=== PATIENT | female | born 1935 | race Caucasian/White ===

== ENCOUNTER 2016-12-04 09:20 | Inpatient (IN) | payer MEDICARE, OTHER ==
[~2016-12-04] VITALS: Ht 165.1 cm; Wt 73.6 kg
[2016-12-16] MEDS ORDERED: LUTE20CA PO (12:55)
[2016-12-16] MEDS ORDERED: DAILTAB39 PO (12:55)
[2016-12-16] MEDS ORDERED: PANT40TA3 PO (12:55)
[2016-12-16] MEDS ORDERED: METO100T PO (12:55)
[2016-12-16] MEDS ORDERED: VITA100036 PO (12:55)
[2016-12-16] MEDS ORDERED: LORA-373 PO (12:55)
[2016-12-16] MEDS ORDERED: DORZ2SOL EACH EYE (12:55)
[2016-12-16] MEDS ORDERED: ESCI10TA PO (12:55)
[2016-12-16] MEDS ORDERED: AMLO10TA2 PO (12:55)
[2016-12-16] MEDS ORDERED: COMB0.2S EACH EYE (12:55)
[2016-12-16] MEDS ORDERED: RANI150T PO (12:55)
[2016-12-16] MEDS ORDERED: LUMI0.01 EACH EYE (12:55)
[2016-12-16] MEDS ORDERED: CRAN400C PO (12:55)
[2016-12-16] MEDS ORDERED: ESTR42.5V VAGINAL (12:55)
[2016-12-23] VITALS (10 sets, daily range): BP systolic 98–167; BP diastolic 54–80; PULSE 51–67; RESP 18–20; TEMP 97.9–98.6; O2SAT 93–98
[2016-12-23] MEDS ORDERED: NEOSTIGMINE 3 MG/3 ML SYR IV ONE (11:52)
[2016-12-23] MEDS ORDERED: PROPOFOL 200 MG/20 ML AMP IV ONE (11:52)
[2016-12-23] MEDS ORDERED: LACTATED RINGER'S 1000 ML INJ 1,000 ML IV ONE (11:53)
[2016-12-23] MEDS ORDERED: ONDANSETRON HCL 4 MG/2 ML VIAL IV PUSH ONE (11:53)
[2016-12-23] MEDS ORDERED: ALVIMOPAN 12 MG CAPSULE - On Call PO SCH (12:45)
[2016-12-23] MEDS ORDERED: SODIUM CHLORID 0.9% 500 ML IV PRN (12:45)
[2016-12-23] MEDS ORDERED: LACTATED RINGER'S 1000 ML IV PRN (12:45)
[2016-12-23] MEDS ORDERED: CHLORHEXIDINE GLUCONATE 2 % 1 PACK (2 CLOTHS) TOPICAL PRN (12:45)
[2016-12-23] MEDS ORDERED: INSULIN HUMAN REGULAR 1,000 UNITS/10 ML VIAL SQ PRN (12:45)
[2016-12-23] MEDS ORDERED: METRONIDAZOLE 500 MG/100 ML ISONTONIC SOLN IV SCH (12:45)
[2016-12-23] MEDS ORDERED: ceFAZolin 1,000 MG/NS 100 ML IV SCH ×2 (12:45)
[2016-12-23] MEDS ORDERED: METOPROLOL TARTRATE 25 MG TAB PO PRN (12:45)
[2016-12-23] MEDS ORDERED: POVIDONE IODINE 5% (ANTISEPSIS KIT) 4 APPLICATIONS EACH NARE PRN (12:45)
[2016-12-23] MEDS ORDERED: DEXT 5%-NACL 0.9% 1000 ML INJ 1,000 ML IV SCH (13:00)
[2016-12-23] MEDS ORDERED: MIDAZOLAM HCL 2 MG/2 ML VIAL ONE (16:03)
[2016-12-23] MEDS ORDERED: FAMOTIDINE 20 MG/2 ML VIAL ONE (16:03)
[2016-12-23] MEDS ORDERED: DEXAMETHASONE SOD PHOS 4 MG/ML VIAL ONE (16:03)
[2016-12-23] MEDS ORDERED: ACETAMINOPHEN 1000 MG/100 ML VIAL IV ONE (16:39)
[2016-12-23] MEDS ORDERED: HYDROmorphone HCL PF 2 MG/ML VIAL ONE (16:39)
[2016-12-23] MEDS ORDERED: fentaNYL CITRATE 250 MCG/5 ML AMP ONE ×2 (16:39→18:22)
[2016-12-23] MEDS ORDERED: KETOROLAC TROMETHAMINE 30 MG/ML (IVP) VIAL IVP PRN (17:45)
[2016-12-23] MEDS ORDERED: NALOXONE HCL 0.4 MG/ML AMP IV PRN (17:45)
[2016-12-23] MEDS ORDERED: ACETAMINOPHEN/HYDROcodone 325 MG/5 MG TAB PO PRN ×2 (17:45)
[2016-12-23] MEDS ORDERED: POTASSIUM CHLOR 20 MEQ PREMIX 100 ML IV PRN (17:45)
[2016-12-23] MEDS ORDERED: MORPHINE SULFATE 30 MG/30 ML PCA IV SCH (17:45)
[2016-12-23] MEDS ORDERED: Post-op Orders (for Pharmacy) MISC XX ONE (17:45)
[2016-12-23] MEDS ORDERED: POTASSIUM CHLOR 40 MEQ PREMIX 100 ML IV PRN (17:45)
[2016-12-23] MEDS ORDERED: ZOLPIDEM TARTRATE 5 MG TAB PO PRN (17:45)
[2016-12-23] MEDS ORDERED: SODIUM CHLORIDE 0.9% FLUSH 10 ML FLUSH IV FLUSH PRN (17:45)
[2016-12-23] MEDS ORDERED: BENZOCAINE 6 MG/MENTHOL 10 MG LOZENGE BUCCAL PRN (17:45)
[2016-12-23] MEDS ORDERED: ONDANSETRON HCL 4 MG/2 ML VIAL IV PRN (17:45)
[2016-12-23] MEDS ORDERED: ENALAPRILAT 1.25 MG/ML VIAL IV PRN (17:45)
[2016-12-23] MEDS: DORZOLAMIDE 2% OPTH SOLN 200 DROP/10 ML BTLO EACH EYE SCH (18:00)
[2016-12-23 18:25] LABS: AUTOMATED NEUTROPHIL # 6.8 TH/MM3 (1.8-7.7); BASOPHIL # 0.1 TH/MM3 (0-0.2); BASOPHIL % 0.6 % (0.0-2.0); EOSINOPHIL # 0.1 TH/MM3 (0-0.4); EOSINOPHIL % 0.7 % (0.0-4.0); HEMATOCRIT 42.7 % (35.0-46.0); HEMO FLAGS DIFF FINAL; LYMPH % 15.3 % (9.0-44.0); LYMPHOCYTE # 1.3 TH/MM3 (1.0-4.8); MEAN CELL VOLUME 87.4 FL (80.0-100.0); MEAN CORPUSCULAR HEMOGLOBIN 29.2 PG (27.0-34.0); MEAN CORPUSCULAR HGB CONC 33.4 % (32.0-36.0); MONO % 2.5 % (0.0-8.0); NEUT % 80.9 % (16.0-70.0); PLATELET COUNT 241 TH/MM3 (150-450); RED BLOOD COUNT 4.88 MIL/MM3 (4.00-5.30); RED CELL DISTRIBUTION WIDTH 15.4 % (11.6-17.2); WHITE BLOOD COUNT 8.4 TH/MM3 (4.0-11.0)
[2016-12-23] MEDS ORDERED: *morphine SULFATE 8 MG/ML PERIprocedure ONLY ONE (18:33)
[2016-12-23 18:47] LABS: BICARBONATE 21.1 MEQ/L (21.0-32.0)
[2016-12-23 18:50] LABS: POTASSIUM 4.5 MEQ/L (3.5-5.1)
[2016-12-23] MEDS ORDERED: DO NOT ADM ANY ANTICOAGULANT DRUGS PRN (19:00)
[2016-12-23] MEDS: D5-LR + KCL 20 MEQ INJ 1,000 ML IV SCH (19:00)
[2016-12-23] MEDS: METOCLOPRAMIDE HCL 10 MG/2 ML VIAL IVS SCH ×2 (20:10→23:46)
[2016-12-23] MEDS: METOPROLOL TARTRATE 100 MG TAB PO SCH (20:11)
[2016-12-23] MEDS: SULFAMETHOXAZOLE-TRIMETHOPRIM DS 800-160 MG TAB PO SCH (20:12)
[2016-12-23] MEDS: SODIUM CHLORIDE 0.9% FLUSH 10 ML FLUSH IV FLUSH SCH (20:12)
[2016-12-23] MEDS ORDERED: NON-FORMULARY DRUG (Bimatoprost Opth Drops (Lumigan Opth Drops) 1 DROP) EACH EYE SCH (21:00)
[2016-12-23] MEDS ORDERED: NON-FORMULARY DRUG (Brimonidine-Timolol Opth Drops (Combigan Opth Drops) 1 DROP) EACH EYE SCH (21:00)
[2016-12-23] MEDS: PCA - TOTAL MG MORPHINE DELIVERED PER SHIFT SCH (22:00)
[2016-12-23] MEDS: LATANOPROST 0.005% OPHT SOLN 2.5 ML BTL EACH EYE SCH (22:00)
[2016-12-23] MEDS ORDERED: PT:COMBIGAN OPTH SOL EACH EYE SCH (23:00)
[2016-12-23] MEDS: metroNIDAZOLE 500 MG INJ 100 ML IV SCH (23:45)
[2016-12-24] VITALS (9 sets, daily range): BP systolic 112–150; BP diastolic 60–85; PULSE 51–67; RESP 16–18; TEMP 96–98.6; O2SAT 95–99
[2016-12-24] MEDS: D5-LR + KCL 20 MEQ INJ 1,000 ML IV SCH ×2 (03:25→15:52)
[2016-12-24] MEDS: PCA - TOTAL MG MORPHINE DELIVERED PER SHIFT SCH (05:26)
[2016-12-24] MEDS: METOCLOPRAMIDE HCL 10 MG/2 ML VIAL IVS SCH ×3 (05:26→17:16)
[2016-12-24 05:47] LABS: AUTOMATED NEUTROPHIL # 6.7 TH/MM3 (1.8-7.7); HEMO FLAGS DIFF FINAL; LYMPH % 8.9 % (9.0-44.0); LYMPHOCYTE # 0.7 TH/MM3 (1.0-4.8); MEAN CELL VOLUME 86.4 FL (80.0-100.0); MEAN CORPUSCULAR HGB CONC 33.6 % (32.0-36.0); MONO % 4.1 % (0.0-8.0); PLATELET COUNT 236 TH/MM3 (150-450); RED BLOOD COUNT 4.51 MIL/MM3 (4.00-5.30); RED CELL DISTRIBUTION WIDTH 15.6 % (11.6-17.2); WHITE BLOOD COUNT 7.7 TH/MM3 (4.0-11.0)
[2016-12-24 06:03] LABS: BICARBONATE 23.8 MEQ/L (21.0-32.0); POTASSIUM 4.3 MEQ/L (3.5-5.1)
[2016-12-24] MEDS: metroNIDAZOLE 500 MG INJ 100 ML IV SCH ×2 (07:49→15:50)
[2016-12-24] MEDS: DORZOLAMIDE 2% OPTH SOLN 200 DROP/10 ML BTLO EACH EYE SCH ×3 (09:00→17:16)
--- NOTE | 2016-12-24 09:01 | HHI.PR ---
Subjective Remarks No pain. No N or V. No stool. Objective Vital Signs Date Time Temp Pulse Resp B/P Pulse Ox O2 Delivery O2 Flow Rate FiO2 12/24/16 07:00 98.5 65 18 120/85 99 12/24/16 07:00 52 12/24/16 05:26 22 12/24/16 03:42 95 Nasal Cannula 4.50 12/24/16 03:00 97.9 67 18 112/60 98 12/24/16 03:00 94 Nasal Cannula 3.00 12/23/16 23:00 96 Nasal Cannula 3.00 12/23/16 23:00 97.9 67 18 98/60 98 12/23/16 22:00 18 12/23/16 19:22 16 12/23/16 19:00 96 Nasal Cannula 3.00 12/23/16 19:00 98.6 51 18 127/54 96 12/23/16 19:00 98.0 59 17 119/55 95 Nasal Cannula 2 12/23/16 18:55 52 16 142/71 95 Nasal Cannula 2 12/23/16 18:45 52 16 140/65 95 Nasal Cannula 2 12/23/16 18:30 54 16 162/91 96 Nasal Cannula 3 12/23/16 18:15 63 16 162/78 96 Nasal Cannula 3 12/23/16 18:04 97.5 68 16 145/88 95 Nasal Cannula 4 12/23/16 13:21 97.9 65 18 167/80 98 I/O 12/23/16 12/23/16 12/23/16 12/24/16 12/24/16 12/24/16 07:00 15:00 23:00 07:00 15:00 23:00 Intake Total 2000 ml 1241 ml Output Total 80 ml 350 ml Balance 1920 ml 891 ml Intake Oral 120 ml IV Total 1000 ml 1121 ml Other 1000 ml Output Urine Total 70 ml 350 ml Stool Total 0 ml Estimated Blood Loss 10 ml Result Diagram: 12/24/16 0458 12/24/16 0458 Objective Remarks VS-S Abd: flat, soft, non tender. stoma pink Assessment and Plan Assessment and Plan Stable POD#[address] [place] [address]. 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 Aden Rouse MD Dec 24, 2016 09:01
[2016-12-24] MEDS: SULFAMETHOXAZOLE-TRIMETHOPRIM DS 800-160 MG TAB PO SCH ×2 (09:37→21:16)
[2016-12-24] MEDS: ESCITALOPRAM OXALATE 10 MG TAB PO SCH (09:37)
[2016-12-24] MEDS: METOPROLOL TARTRATE 100 MG TAB PO SCH ×2 (09:37→21:16)
[2016-12-24] MEDS: ALVIMOPAN 12 MG CAPSULE - Post-op dosing PO SCH ×2 (09:37→21:16)
[2016-12-24] MEDS: SODIUM CHLORIDE 0.9% FLUSH 10 ML FLUSH IV FLUSH SCH ×2 (09:38→21:00)
[2016-12-24] MEDS: PANTOPRAZOLE SODIUM 40 MG VIAL IVP SCH (09:38)
--- NOTE | 2016-12-24 12:50 | MP ---
cc: ANSHU SINGLETARY M.D., JOHN T. M.D. DATE OF SURGERY: 12/23/2016 PREOPERATIVE DIAGNOSIS Rectovaginal fistula. POSTOPERATIVE DIAGNOSIS Rectovaginal fistula. PROCEDURE Fully diverting loop colostomy and rectal washout. ANESTHESIA General endotracheal. SURGEON Dr. Perera TRACK SERVICE PERSON Dr. Parker ESTIMATED BLOOD LOSS Minimal. OPERATIVE FINDINGS This patient has a large upper rectovaginal fistula, probably from a pessary that has been intermittently. The rectovaginal fistula was identified about a month ago and because of its size we decided diversion was going to be necessary in order to repair it. She is having a profuse amount of liquid stool from her bowel prep draining out of her vagina at this time. At surgery a fully diverting loop colostomy was done in the sigmoid colon. The right upper sigmoid was closed with a TX 60 green staple height stapling device to prevent any stool from leaking down the distal colon into the vagina so it was fully diverting. A rectal washout was done as well. OPERATIVE TECHNIQUE The patient was placed on the table in the supine position. After adequate general endotracheal anesthesia the legs were placed in the perineal lithotomy position and the abdomen and perineum were prepped and draped in the usual manner. A circular incision was made in the left lower quadrant in the skin and taken down through subcutaneous tissue and the anterior rectus sheath was incised vertically and then the rectus muscles were split. The posterior rectus sheath was grabbed and divided and opened and the peritoneal cavity was entered. The sigmoid colon was seen in the left colic gutter and it was fairly redundant. It was thickened with some diverticulosis but it was brought out through the colostomy site and an opening in the mesentery was made under the bowel. Once this was done a [place] drain was passed under it and then Dr. Parker did proctosigmoidoscopy examination, insufflating air into the rectum to ensure which end was distal. Once that was assured with the air the distal end of the colostomy site was closed with a TX 60 green staple height stapler and then the rectum was irrigated thoroughly with saline solution and cleaned of any leftover stool. The colostomy was then matured with a transverse incision across the sigmoid colon and it was matured with interrupted 3-0 Vicryl sutures and a 57 mm appliance was applied up. Sponge, needle and instrument counts were reported as correct. The estimated blood loss was minimal. The patient tolerated the procedure well and left the operating room in good condition. Operating time was 25 minutes. MD OSCAR Posada/BARBRA /6:09 PM /12:45 PM
[2016-12-24] MEDS ORDERED: ALVIMOPAN 12 MG CAPSULE PO SCH (21:00)
[2016-12-24] MEDS: LATANOPROST 0.005% OPHT SOLN 2.5 ML BTL EACH EYE SCH (21:16)
[2016-12-25] VITALS: BP 151/65; PULSE 52; RESP 16; TEMP 97.2; O2SAT 92
[2016-12-25 04:00] VITALS: BP 140/69; PULSE 57; RESP 18; TEMP 96.6; O2SAT 96
[2016-12-25 05:07] LABS: AUTOMATED NEUTROPHIL # 6.2 TH/MM3 (1.8-7.7); BASOPHIL % 0.5 % (0.0-2.0); EOSINOPHIL # 0.1 TH/MM3 (0-0.4); EOSINOPHIL % 0.7 % (0.0-4.0); HEMATOCRIT 38.7 % (35.0-46.0); HEMO FLAGS DIFF FINAL; LYMPH % 15.4 % (9.0-44.0); LYMPHOCYTE # 1.3 TH/MM3 (1.0-4.8); MEAN CELL VOLUME 86.7 FL (80.0-100.0); MEAN CORPUSCULAR HEMOGLOBIN 28.8 PG (27.0-34.0); MEAN CORPUSCULAR HGB CONC 33.2 % (32.0-36.0); MONO % 7.5 % (0.0-8.0); NEUT % 75.9 % (16.0-70.0); PLATELET COUNT 227 TH/MM3 (150-450); RED BLOOD COUNT 4.46 MIL/MM3 (4.00-5.30); RED CELL DISTRIBUTION WIDTH 15.6 % (11.6-17.2); WHITE BLOOD COUNT 8.2 TH/MM3 (4.0-11.0)
[2016-12-25 05:24] LABS: BICARBONATE 26.9 MEQ/L (21.0-32.0); POTASSIUM 3.7 MEQ/L (3.5-5.1)
[2016-12-25] MEDS: METOCLOPRAMIDE HCL 10 MG/2 ML VIAL IVS SCH ×4 (06:00→18:38)
[2016-12-25 08:00] VITALS: BP 156/70; PULSE 55; RESP 16; TEMP 97.5; O2SAT 92
[2016-12-25] MEDS: SODIUM CHLORIDE 0.9% FLUSH 10 ML FLUSH IV FLUSH SCH ×2 (09:00→21:00)
[2016-12-25] MEDS: SULFAMETHOXAZOLE-TRIMETHOPRIM DS 800-160 MG TAB PO SCH ×2 (10:44→21:17)
[2016-12-25] MEDS: ESCITALOPRAM OXALATE 10 MG TAB PO SCH (10:44)
[2016-12-25] MEDS: ALVIMOPAN 12 MG CAPSULE - Post-op dosing PO SCH ×2 (10:44→21:17)
[2016-12-25] MEDS: METOPROLOL TARTRATE 100 MG TAB PO SCH ×2 (10:45→21:17)
[2016-12-25] MEDS: DORZOLAMIDE 2% OPTH SOLN 200 DROP/10 ML BTLO EACH EYE SCH ×3 (10:45→18:38)
[2016-12-25] MEDS: PANTOPRAZOLE SODIUM 40 MG VIAL IVP SCH (10:45)
[2016-12-25 12:00] VITALS: BP 148/76; PULSE 62; RESP 16; TEMP 97.7; O2SAT 95
--- NOTE | 2016-12-25 12:53 | HHI.PR ---
Subjective Remarks No pain. No N or V. No stool. Objective Vital Signs Date Time Temp Pulse Resp B/P Pulse Ox O2 Delivery O2 Flow Rate FiO2 12/25/16 12:00 97.7 62 16 148/76 95 12/25/16 08:00 97.5 55 16 156/70 92 12/25/16 04:00 96.6 57 18 140/69 96 12/25/16 00:00 97.2 52 16 151/65 92 12/24/16 20:00 96.8 51 16 135/63 95 12/24/16 18:43 96.0 55 18 150/69 96 12/24/16 15:00 98.6 51 18 124/65 97 I/O 12/24/16 12/24/16 12/24/16 12/25/16 12/25/16 12/25/16 07:00 15:00 23:00 07:00 15:00 23:00 Intake Total 1241 ml 1663 ml 833 ml Output Total 350 ml 570 ml 250 ml Balance 891 ml 1093 ml 583 ml Intake Oral 120 ml 460 ml 120 ml IV Total 1121 ml 1203 ml 713 ml Output Urine Total 350 ml 550 ml 250 ml Stool Total 0 ml 20 ml 0 ml # Voids 2 Result Diagram: 12/25/16 0457 12/25/16456 Objective Remarks VS-S Abd: flat, soft, non tender. stoma pink Assessment and Plan Assessment and Plan Stable POD#2 FLD now, Reg in AM. Ambulate. Plan D/C tomorrow to [facility] Aden Peerra MD Dec 25, 2016 12:53
[2016-12-25] MEDS: D5-LR + KCL 20 MEQ INJ 1,000 ML IV SCH ×2 (14:25)
[2016-12-25 16:00] VITALS: BP 163/74; PULSE 65; RESP 17; TEMP 97.5; O2SAT 93
[2016-12-25 20:00] VITALS: BP 110/58; PULSE 64; RESP 20; TEMP 98.2; O2SAT 94
[2016-12-25] MEDS: LATANOPROST 0.005% OPHT SOLN 2.5 ML BTL EACH EYE SCH (21:18)
[2016-12-26] VITALS: BP 176/72; PULSE 62; RESP 20; TEMP 97.8; O2SAT 93
[2016-12-26] MEDS: METOCLOPRAMIDE HCL 10 MG/2 ML VIAL IVS SCH ×3 (01:13→12:06)
[2016-12-26 05:30] VITALS: BP 159/75; PULSE 54; RESP 20; TEMP 96.5; O2SAT 94
[2016-12-26 08:00] VITALS: BP 167/77; PULSE 57; RESP 20; TEMP 97.5; O2SAT 95
[2016-12-26] MEDS: SODIUM CHLORIDE 0.9% FLUSH 10 ML FLUSH IV FLUSH SCH (08:15)
[2016-12-26] MEDS: D5-LR + KCL 20 MEQ INJ 1,000 ML IV SCH (08:46)
[2016-12-26] MEDS: METOPROLOL TARTRATE 100 MG TAB PO SCH (08:47)
[2016-12-26] MEDS: PANTOPRAZOLE SODIUM 40 MG VIAL IVP SCH (08:47)
[2016-12-26] MEDS: SULFAMETHOXAZOLE-TRIMETHOPRIM DS 800-160 MG TAB PO SCH (08:47)
[2016-12-26] MEDS: ALVIMOPAN 12 MG CAPSULE - Post-op dosing PO SCH (08:47)
[2016-12-26] MEDS: DORZOLAMIDE 2% OPTH SOLN 200 DROP/10 ML BTLO EACH EYE SCH ×2 (08:47→12:06)
[2016-12-26] MEDS: ESCITALOPRAM OXALATE 10 MG TAB PO SCH (08:47)
--- NOTE | 2016-12-26 10:52 | HHI.DCPOC ---
Discharge Care Plan Diagnosis: (1) Colovaginal fistula Your Health Problems Are: Difficulty with ADL Incision/Drains Appetite Changes Irregular Bowel Function Exercise Tolerance Additional Problems New colostomy teaching Goals to Promote Your Health * To prevent worsening of your condition and complications * To maintain your health at the optimal level Directions to Meet Your Goals Take your medications as prescribed Follow your dietary instruction Follow activity as directed Keep your appointments as scheduled Take your immunizations and boosters as scheduled If your symptoms worsen call your PCP, if no PCP go to Urgent Care Center or Emergency Room Smoking is Dangerous to Your Health. Avoid second hand smoke Call the 24-hour hour crisis hotline for domestic abuse at Aden Perera MD Dec 26, 2016 10:52
[2016-12-26 11:42] VITALS: BP 121/59; PULSE 58; RESP 19; TEMP 96.9; O2SAT 95
== END 2016-12-26 15:06 | DRG 331 ==
LOC: HSDI 12-23 12:08 → EDUNIT# 12-23 16:00 → HCIS 12-23 19:25 → N07A 12-24 18:19
PROVIDERS: ADMIT Colon & Rectal Surgery; ATTEND Colon & Rectal Surgery
PROC: 3E1 Administration, Physiological Systems and Anatomical Regions, Irrigation (ICD-10-PCS; 2016-12-23)
PROC: 0DJD8ZZ Inspection of Lower Intestinal Tract, Via Natural or Artificial Opening Endoscopic (ICD-10-PCS; 2016-12-23)
PROC: 0D1N0Z4 Bypass Sigmoid Colon to Cutaneous, Open Approach (ICD-10-PCS; principal; 2016-12-23 16:36)
DX: N82.3 Fistula of vagina to large intestine (principal); I10 Essential (primary) hypertension; H40.9 Unspecified glaucoma
CPT/HCPCS: 80048; 85025; 86850; 86900; 86901; 94150; C9113; J0131; J0690; J1100; J1170; J2250; J2270; J2405; J2710; J2765; J3010; J3480; J7120

== ENCOUNTER → 2016-12-16 | Outpatient (CLI) | payer MEDICARE, OTHER ==
[~2016-12-16] MED LIST: AMLO10TA2 PO; COMB0.2S EACH EYE; CRAN400C PO; DAILTAB39 PO; DORZ2SOL EACH EYE; ESCI10TA PO; ESTR42.5V VAGINAL; LORA-373 PO; LUMI0.01 EACH EYE; LUTE20CA PO; METO100T PO; PANT40TA3 PO; RANI150T PO; VITA100036 PO
[2016-12-16 11:51] LABS: BASOPHIL # 0.1 TH/MM3 (0-0.2); BASOPHIL % 0.6 % (0.0-2.0); EOSINOPHIL # 0.1 TH/MM3 (0-0.4); EOSINOPHIL % 1.4 % (0.0-4.0); HEMATOCRIT 45.1 % (35.0-46.0); HEMO FLAGS DIFF FINAL; LYMPH % 15.3 % (9.0-44.0); LYMPHOCYTE # 1.4 TH/MM3 (1.0-4.8); MEAN CELL VOLUME 85.9 FL (80.0-100.0); MEAN CORPUSCULAR HEMOGLOBIN 28.7 PG (27.0-34.0); MEAN CORPUSCULAR HGB CONC 33.4 % (32.0-36.0); MONO % 5.5 % (0.0-8.0); NEUT % 77.2 % (16.0-70.0); PLATELET COUNT 273 TH/MM3 (150-450); RED BLOOD COUNT 5.25 MIL/MM3 (4.00-5.30); RED CELL DISTRIBUTION WIDTH 15.2 % (11.6-17.2); WHITE BLOOD COUNT 9.1 TH/MM3 (4.0-11.0)
--- NOTE | 2016-12-16 11:59 | RADRPT ---
EXAM DATE/TIME: 12/16/2016 11:39 [place] COMPARISON: No previous studies available for comparison. INDICATIONS : Evaluate for pneumothorax, pneumonia and communicable diseases. Pre-op colonoscopy MEDICAL HISTORY : None. SURGICAL HISTORY : None. ENCOUNTER: Initial ACUITY: 1 day PAIN SCORE: 0/10 LOCATION: chest FINDINGS: A retrocardiac density containing air is identified. There is minimal atelectasis versus scarring in the left base. Lungs otherwise clear. Heart and mediastinal structures are unremarkable. CONCLUSION: Retrocardiac density consistent with a moderate to large hiatal hernia. Minimal scar versus atelectasis left base. No other significant abnormality. Isak Silva MD on December 16, 2016 at 11:55 Board Certified Radiologist. This report was verified electronically.
[2016-12-16 12:03] LABS: PROTHROMBIN TIME - PATIENT 10.7 SEC (9.8-11.6)
[2016-12-16 12:10] LABS: BACTERIA, URINE MANY /hpf; BLOOD, URINE MOD (NEG); COMMENT (UR) CULTURE INDICATED; CULTURE IF INDICATED CULTURE INDICATED; GLUCOSE,URINE NEG (NEG); KETONE, URINE NEG (NEG); SQUAMOUS EPITHELIAL CELL URINE 31 /hpf (0-5)
[2016-12-16 12:11] LABS: NITRITE,URINE POS (NEG); URINE COLOR RED (YELLW/STRAW)
[2016-12-16 12:21] LABS: ANION GAP 11 MEQ/L (5-15); AST (GOT) 13 U/L (15-37); BICARBONATE 25.5 MEQ/L (21.0-32.0); BLOOD UREA NITROGEN 14 MG/DL (7-18); CHLORIDE 103 MEQ/L (98-107); GLOMERULAR FILTRATION RATE 49 ML/MIN (>89); GLUCOSE,FASTING 97 MG/DL (74-99); POTASSIUM 3.9 MEQ/L (3.5-5.1); SODIUM (NA) 139 MEQ/L (136-145)
[2016-12-16 12:23] LABS: ALT (GPT) 19 U/L (10-53)
[2016-12-16 12:25] LABS: ALKALINE PHOSPHATASE 74 U/L (45-117); TOTAL BILIRUBIN ADULT 0.9 MG/DL (0.2-1.0)
--- NOTE | 2016-12-16 18:19 | EKG ---
Date Performed: 12/16/2016 Time Performed: 10:52:32 PTAGE: 81 years EKG: SINUS BRADYCARDIA WITH OCCASIONAL SUPRAVENTRICULAR PREMATURE COMPLEXES BORDERLINE ECG NO PREVIOUS TRACING DOCTOR: Ney Haas Interpretating Date/Time 12/16/2016 18:17:26
== END ==
LOC: CPRE 10:13
PROVIDERS: ATTEND Colon & Rectal Surgery
DX: Z01.812 Encounter for preprocedural laboratory examination (principal); Z01.811 Encounter for preprocedural respiratory examination; Z01.810 Encounter for preprocedural cardiovascular examination; N82.3 Fistula of vagina to large intestine; R94.31 Abnormal electrocardiogram [ECG] [EKG]; N39.0 Urinary tract infection, site not specified; B96.20 Unspecified Escherichia coli [E. coli] as the cause of diseases classified elsewhere
CPT/HCPCS: 36415; 71020; 80053; 81001; 85025; 85610; 85730; 87077; 87086; 87186; 93005

== ENCOUNTER → 2017-02-19 | Day surgery (SDC) | payer MEDICARE, OTHER ==
[~2017-02-19] VITALS: Ht 165.1 cm; Wt 75.7 kg
[~2017-02-19] MED LIST changes: +ACETAMINOPHEN/HYDROcodone 325 MG/5 MG TAB PO PRN; +CHLORHEXIDINE GLUCONATE 2 % 1 PACK (2 CLOTHS) TOPICAL PRN; +DO NOT ADM ANY ANTICOAGULANT DRUGS PRN; +INSULIN HUMAN REGULAR 1,000 UNITS/10 ML VIAL SQ PRN; +LACTATED RINGER'S 1000 ML INJ 1,000 ML IV ONE; +LACTATED RINGER'S 1000 ML IV PRN; +LIDOCAINE 1%/EPINEPHrine 1:100,000 SOLN 50 ML VIAL INFIL ONE; -LORA-373 PO; +METOPROLOL TARTRATE 25 MG TAB PO PRN; +MIDAZOLAM HCL 2 MG/2 ML VIAL ONE; +NEOSTIGMINE 3 MG/3 ML SYR IV ONE; +ONDANSETRON HCL 4 MG/2 ML VIAL IV PUSH ONE; +POVIDONE IODINE 5% (ANTISEPSIS KIT) 4 APPLICATIONS EACH NARE PRN; +PROPOFOL 200 MG/20 ML AMP IV ONE; +SODIUM CHLORID 0.9% 500 ML IV PRN; +SUGAMMADEX SODIUM 200 MG/2 ML VIAL IV PUSH ONE; +ceFAZolin INJ 1,000 MG VIAL IV ONE; +ePHEDrine/NS 25 MG/5 ML SYR IV ONE; +fentaNYL CITRATE 250 MCG/5 ML AMP ONE; +metroNIDAZOLE 500 MG INJ 100 ML IV ONE
[2017-02-19 12:12] VITALS: BP 159/73; PULSE 51; RESP 20; TEMP 97.6; O2SAT 99
[2017-02-19 12:16] LABS: BASOPHIL % 0.4 % (0.0-2.0); EOSINOPHIL # 0.1 TH/MM3 (0-0.4); EOSINOPHIL % 1.7 % (0.0-4.0); HEMO FLAGS DIFF FINAL; LYMPH % 20.1 % (9.0-44.0); LYMPHOCYTE # 1.4 TH/MM3 (1.0-4.8); MEAN CORPUSCULAR HEMOGLOBIN 30.2 PG (27.0-34.0); MEAN CORPUSCULAR HGB CONC 33.1 % (32.0-36.0); MONO % 7.5 % (0.0-8.0); NEUT % 70.3 % (16.0-70.0); PLATELET COUNT 239 TH/MM3 (150-450); RED CELL DISTRIBUTION WIDTH 15.6 % (11.6-17.2); WHITE BLOOD COUNT 7.1 TH/MM3 (4.0-11.0)
[2017-02-19 16:25] VITALS: BP 157/68; PULSE 53; RESP 20; TEMP 97.8; O2SAT 96
--- NOTE | 2017-02-20 10:01 | MP ---
cc: SANTHOSH PERERA M.D. DATE OF SURGERY: 02/19/2017 PREOPERATIVE DIAGNOSIS High rectovaginal fistula. POSTOPERATIVE DIAGNOSIS High rectovaginal fistula. PROCEDURE Repair of rectovaginal fistula. ANESTHESIA General endotracheal. SURGEON Dr. Perera MAJOR DONOR COORDINATOR SURGEON Dr. Berger ESTIMATED BLOOD LOSS Minimal. OPERATIVE FINDINGS This patient developed a rectovaginal fistula after wearing a pessary for sometime. It was changed frequently and inspected by her urologist on a regular basis; however, she still developed a good size rectovaginal fistula just posterior to the cervix and the upper part of the vagina. Because of this several months ago we did a fully diverting sigmoid colostomy with a rectal washout and waited for the inflammation to go down. She now comes in for repair of the rectovaginal fistula and repair was done in a two-layer closure from the rectal side. OPERATIVE TECHNIQUE The patient was placed on the table in a prone jackknife position after adequate general endotracheal anesthesia and the buttocks were taped apart. A buttocks, perineum and vaginal prep was done and inspection under anesthesia was done. There was a large rectovaginal fistula that admitted my fingertip from the vaginal side. It was just posterior to the cervix and the surrounding mucosa was densely stuck to the edges of the fistula. Superiorly the mucosa was a little bit reddened but I was able to mobilize the mucosa all the way around after injecting 1% Xylocaine with epinephrine. The mucosa was mobilized approximately a centimeter circumferentially around the fistula itself and then the rectovaginal septal wall was approximated with interrupted 3-0 Vicryl sutures. Once the rectovaginal septum was repaired the mucosa was closed over this with interrupted 3-0 Vicryl sutures. At the termination of the procedure the fistula appeared closed with closed pliable mucosa. Dressing was applied. Sponge, needle and instrument counts were reported as correct. The estimated blood loss was minimal. The patient tolerated the procedure well and left the operating room in good condition. MD OSCAR Posada/BARBRA /2:56 PM /9:48 AM
== END | disposition home or self-care (01) ==
LOC: HSDC 11:10
PROVIDERS: ATTEND Colon & Rectal Surgery
DX: N82.3 Fistula of vagina to large intestine (principal); I10 Essential (primary) hypertension
CPT/HCPCS: 00902; 57300; 85025; J0690; J2250; J2405; J2710; J3010; J7120

== ENCOUNTER 2017-05-07 11:01 | Inpatient (IN) | payer MEDICARE, OTHER ==
[~2017-05-07] VITALS: Ht 165.1 cm; Wt 68.1 kg
[~2017-05-07 11:01] MED LIST changes: -ACETAMINOPHEN/HYDROcodone 325 MG/5 MG TAB PO PRN; -CHLORHEXIDINE GLUCONATE 2 % 1 PACK (2 CLOTHS) TOPICAL PRN; -CRAN400C PO; +CRAN500C7 PO; -DO NOT ADM ANY ANTICOAGULANT DRUGS PRN; -INSULIN HUMAN REGULAR 1,000 UNITS/10 ML VIAL SQ PRN; -LACTATED RINGER'S 1000 ML INJ 1,000 ML IV ONE; -LACTATED RINGER'S 1000 ML IV PRN; -LIDOCAINE 1%/EPINEPHrine 1:100,000 SOLN 50 ML VIAL INFIL ONE; -METOPROLOL TARTRATE 25 MG TAB PO PRN; -MIDAZOLAM HCL 2 MG/2 ML VIAL ONE; -NEOSTIGMINE 3 MG/3 ML SYR IV ONE; -ONDANSETRON HCL 4 MG/2 ML VIAL IV PUSH ONE; -PANT40TA3 PO; -POVIDONE IODINE 5% (ANTISEPSIS KIT) 4 APPLICATIONS EACH NARE PRN; -PROPOFOL 200 MG/20 ML AMP IV ONE; -SODIUM CHLORID 0.9% 500 ML IV PRN; -SUGAMMADEX SODIUM 200 MG/2 ML VIAL IV PUSH ONE; +ZOFR4TAB PO; -ceFAZolin INJ 1,000 MG VIAL IV ONE; -ePHEDrine/NS 25 MG/5 ML SYR IV ONE; -fentaNYL CITRATE 250 MCG/5 ML AMP ONE; -metroNIDAZOLE 500 MG INJ 100 ML IV ONE
[2017-05-07] MEDS ORDERED: ceFAZolin 1,000 MG/NS 100 ML IV SCH ×4 (13:00)
[2017-05-07] MEDS ORDERED: CHLORHEXIDINE GLUCONATE 2 % 1 PACK (2 CLOTHS) TOPICAL PRN ×2 (13:15)
[2017-05-07] MEDS ORDERED: METRONIDAZOLE 500 MG/100 ML ISONTONIC SOLN IV SCH ×2 (13:15)
[2017-05-07] MEDS ORDERED: LACTATED RINGER'S 1000 ML IV PRN ×2 (13:15)
[2017-05-07] MEDS ORDERED: DEXT 5%-NACL 0.9% 1000 ML INJ 1,000 ML IV SCH ×2 (13:15)
[2017-05-07] MEDS ORDERED: POVIDONE IODINE 5% (ANTISEPSIS KIT) 4 APPLICATIONS EACH NARE PRN ×2 (13:15)
[2017-05-07] MEDS ORDERED: INSULIN HUMAN REGULAR 1,000 UNITS/10 ML VIAL SQ PRN ×2 (13:15)
[2017-05-07] MEDS ORDERED: METOPROLOL TARTRATE 25 MG TAB PO PRN ×2 (13:15)
[2017-05-07] MEDS ORDERED: ALVIMOPAN 12 MG CAPSULE - On Call PO SCH ×2 (13:15)
[2017-05-07] MEDS ORDERED: SODIUM CHLORID 0.9% 500 ML IV PRN ×2 (13:15)
[2017-05-07] MEDS ORDERED: BUPIVACAINE HCL PF 0.5% 30 ML VIAL ONE ×2 (13:23)
[2017-05-07] MEDS ORDERED: SUGAMMADEX SODIUM 200 MG/2 ML VIAL IV PUSH ONE ×2 (13:49)
[2017-05-07] MEDS ORDERED: POTASSIUM CHLOR 20 MEQ PREMIX 100 ML IV PRN ×2 (15:15)
[2017-05-07] MEDS ORDERED: Post-op Orders (for Pharmacy) MISC XX ONE ×2 (15:15)
[2017-05-07] MEDS ORDERED: POTASSIUM CHLOR 40 MEQ PREMIX 100 ML IV-CENTRAL PRN ×2 (15:15)
[2017-05-07] MEDS ORDERED: BENZOCAINE 6 MG/MENTHOL 10 MG LOZENGE BUCCAL PRN ×2 (15:15)
[2017-05-07] MEDS ORDERED: SODIUM CHLORIDE 0.9% FLUSH 10 ML FLUSH IV FLUSH PRN ×2 (15:15)
[2017-05-07] MEDS ORDERED: ACETAMINOPHEN/HYDROcodone 325 MG/5 MG TAB PO PRN ×4 (15:15)
[2017-05-07] MEDS ORDERED: ONDANSETRON HCL 4 MG/2 ML VIAL IV PUSH PRN ×2 (15:15)
[2017-05-07] MEDS ORDERED: NALOXONE HCL 0.4 MG/ML AMP IV PUSH PRN ×2 (15:15)
[2017-05-07] MEDS ORDERED: MORPHINE SULFATE 30 MG/30 ML PCA IV SCH ×2 (15:45)
[2017-05-07 16:00] LABS: AUTOMATED NEUTROPHIL # 7.3 TH/MM3 (1.8-7.7); BASOPHIL # 0.1 TH/MM3 (0-0.2); BASOPHIL % 0.7 % (0.0-2.0); EOSINOPHIL # 0.1 TH/MM3 (0-0.4); EOSINOPHIL % 1.2 % (0.0-4.0); HEMATOCRIT 44.4 % (35.0-46.0); HEMOGLOBIN 14.9 GM/DL (11.6-15.3); LYMPH % 19.1 % (9.0-44.0); LYMPHOCYTE # 1.9 TH/MM3 (1.0-4.8); MEAN CELL VOLUME 90.7 FL (80.0-100.0); MEAN CORPUSCULAR HEMOGLOBIN 30.4 PG (27.0-34.0); MEAN CORPUSCULAR HGB CONC 33.5 % (32.0-36.0); MEAN PLATELET VOLUME 9.6 FL (7.0-11.0); MONO % 4.4 % (0.0-8.0); MONOCYTE # 0.4 TH/MM3 (0-0.9); NEUT % 74.6 % (16.0-70.0); PLATELET COUNT 215 TH/MM3 (150-450); RED CELL DISTRIBUTION WIDTH 14.4 % (11.6-17.2); WHITE BLOOD COUNT 9.7 TH/MM3 (4.0-11.0)
[2017-05-07] MEDS: D5-LR + KCL 20 MEQ INJ 1,000 ML IV SCH ×4 (16:00→23:34)
[2017-05-07 16:20] LABS: BICARBONATE 25.8 MEQ/L (21.0-32.0); CALCIUM 9.7 MG/DL (8.5-10.1); CREATININE 1.1 MG/DL (0.50-1.00)
[2017-05-07] MEDS ORDERED: DO NOT ADM ANY ANTICOAGULANT DRUGS PRN ×2 (16:30)
[2017-05-07] MEDS: PCA - TOTAL MG MORPHINE DELIVERED PER SHIFT SCH ×4 (17:45→22:30)
[2017-05-07] MEDS: DORZOLAMIDE 2% OPTH SOLN 200 DROP/10 ML BTLO EACH EYE SCH ×2 (18:00)
[2017-05-07 18:09] VITALS: BP 153/75; PULSE 56; RESP 12; TEMP 98.5; O2SAT 97
[2017-05-07] MEDS: METOCLOPRAMIDE HCL 10 MG/2 ML VIAL IVS SCH ×4 (18:20→23:34)
[2017-05-07 19:40] VITALS: BP 146/72; PULSE 58; PULSE 80; RESP 18; TEMP 98.2; O2SAT 98
[2017-05-07 20:00] VITALS: PULSE 64
[2017-05-07] MEDS: METOPROLOL TARTRATE 100 MG TAB PO SCH ×2 (20:13)
[2017-05-07] MEDS: ceFAZolin 2 GM PREMIX 50 ML IV SCH ×2 (20:13)
[2017-05-07] MEDS: SODIUM CHLORIDE 0.9% FLUSH 10 ML FLUSH IV FLUSH SCH ×2 (20:13)
[2017-05-07] MEDS: FAMOTIDINE 20 MG TAB PO SCH ×2 (20:14)
[2017-05-07] MEDS: FUROSEMIDE 20 MG/2 ML VIAL IV PUSH SCH ×2 (20:14)
[2017-05-07 21:00] VITALS: PULSE 78
[2017-05-07] MEDS: TIMOLOL MALEATE 0.5% OPHT SOLN 5 ML BTL EACH EYE SCH ×2 (21:00)
[2017-05-07] MEDS: BRIMONIDINE TARTRATE 0.2% OPHT SOLN 5 ML BTL EACH EYE SCH ×2 (21:00)
[2017-05-07] MEDS ORDERED: NON-FORMULARY DRUG (Brimonidine-Timolol Opth Drops (Combigan Opth Drops) 1 DROP) EACH EYE SCH ×2 (21:00)
[2017-05-07] MEDS: LATANOPROST 0.005% OPHT SOLN 2.5 ML BTL EACH EYE SCH ×2 (21:00)
[2017-05-07 22:00] VITALS: PULSE 74
[2017-05-07 23:10] VITALS: BP 128/70; PULSE 77; PULSE 79; RESP 16; TEMP 98; O2SAT 98
[2017-05-07] MEDS: metroNIDAZOLE 500 MG INJ 100 ML IV SCH ×2 (23:34)
[2017-05-08] VITALS (14 sets, daily range): BP systolic 100–166; BP diastolic 55–70; PULSE 48–85; RESP 16–19; TEMP 96.2–98.4; O2SAT 96–98
[2017-05-08] MEDS: ceFAZolin 2 GM PREMIX 50 ML IV SCH ×4 (04:07→11:37)
[2017-05-08 04:34] LABS: AUTOMATED NEUTROPHIL # 11.2 TH/MM3 (1.8-7.7); BASOPHIL % 0.1 % (0.0-2.0); HEMATOCRIT 41.9 % (35.0-46.0); HEMOGLOBIN 14.2 GM/DL (11.6-15.3); LYMPH % 6.5 % (9.0-44.0); LYMPHOCYTE # 0.8 TH/MM3 (1.0-4.8); MEAN CELL VOLUME 89.2 FL (80.0-100.0); MEAN CORPUSCULAR HEMOGLOBIN 30.3 PG (27.0-34.0); MEAN PLATELET VOLUME 9.3 FL (7.0-11.0); MONO % 5.5 % (0.0-8.0); MONOCYTE # 0.7 TH/MM3 (0-0.9); NEUT % 87.9 % (16.0-70.0); PLATELET COUNT 206 TH/MM3 (150-450); RED BLOOD COUNT 4.69 MIL/MM3 (4.00-5.30); RED CELL DISTRIBUTION WIDTH 13.8 % (11.6-17.2); WHITE BLOOD COUNT 12.8 TH/MM3 (4.0-11.0)
[2017-05-08 04:43] LABS: BICARBONATE 29.2 MEQ/L (21.0-32.0); CALCIUM 9.1 MG/DL (8.5-10.1); CREATININE 1.15 MG/DL (0.50-1.00)
[2017-05-08] MEDS: PCA - TOTAL MG MORPHINE DELIVERED PER SHIFT SCH ×6 (06:00→21:26)
[2017-05-08] MEDS: METOCLOPRAMIDE HCL 10 MG/2 ML VIAL IVS SCH ×8 (06:12→23:42)
[2017-05-08] MEDS: metroNIDAZOLE 500 MG INJ 100 ML IV SCH ×4 (06:13→14:00)
[2017-05-08] MEDS: D5-LR + KCL 20 MEQ INJ 1,000 ML IV SCH ×4 (07:58→13:03)
[2017-05-08] MEDS: DORZOLAMIDE 2% OPTH SOLN 200 DROP/10 ML BTLO EACH EYE SCH ×6 (09:00→16:27)
[2017-05-08] MEDS: FUROSEMIDE 20 MG/2 ML VIAL IV PUSH SCH ×4 (09:25→21:25)
[2017-05-08] MEDS: FAMOTIDINE 20 MG TAB PO SCH ×4 (09:25→21:25)
[2017-05-08] MEDS: SODIUM CHLORIDE 0.9% FLUSH 10 ML FLUSH IV FLUSH SCH ×4 (09:26→21:25)
[2017-05-08] MEDS: BRIMONIDINE TARTRATE 0.2% OPHT SOLN 5 ML BTL EACH EYE SCH ×4 (09:26→21:28)
[2017-05-08] MEDS: METOPROLOL TARTRATE 100 MG TAB PO SCH ×4 (09:27→21:00)
[2017-05-08] MEDS: PANTOPRAZOLE SODIUM 40 MG VIAL IVP SCH ×2 (09:28)
[2017-05-08] MEDS: ALVIMOPAN 12 MG CAPSULE - Post-op dosing PO SCH ×4 (09:28→21:25)
[2017-05-08] MEDS: TIMOLOL MALEATE 0.5% OPHT SOLN 5 ML BTL EACH EYE SCH ×4 (10:02→21:27)
--- NOTE | 2017-05-08 11:03 | HHI.PR ---
Subjective Remarks No N or V. No BMs Objective Vital Signs Date Time Temp Pulse Resp B/P (MAP) Pulse Ox O2 Delivery O2 Flow Rate FiO2 05/08/17 08:02 98.1 56 16 154/68 (96) 98 05/08/17 07:00 68 05/08/17 06:32 56 05/08/17 06:00 19 05/08/17 05:07 61 05/08/17 04:28 97.9 82 18 129/65 (86) 96 05/08/17 04:28 67 05/08/17 02:22 85 05/08/17 01:48 64 05/08/17 00:23 69 05/07/17 23:10 79 05/07/17 23:10 98.0 77 16 128/70 (89) 98 05/07/17 22:30 19 05/07/17 22:00 74 05/07/17 21:00 78 05/07/17 20:00 64 05/07/17 19:40 98.2 80 18 146/72 (96) 98 05/07/17 19:40 58 05/07/17 18:09 98.5 56 12 153/75 (101) 97 05/07/17 17:45 18 05/07/17 17:00 56 19 164/72 (102) 97 Room Air 05/07/17 16:30 52 13 162/78 (106) 97 Nasal Cannula 2 05/07/17 16:21 14 05/07/17 16:00 51 15 162/66 (98) 97 Nasal Cannula 2 05/07/17 15:45 50 17 162/70 (100) 97 Nasal Cannula 2 05/07/17 15:30 53 14 163/74 (103) 98 Nasal Cannula 2 05/07/17 15:15 64 23 159/67 (97) 100 Nasal Cannula 4 05/07/17 15:00 97.5 67 24 176/75 (108) 100 Simple Mask 8 05/07/17 12:34 97.7 56 20 147/73 (97) 99 I/O 05/07/17 05/07/17 05/07/17 05/08/17 05/08/17 05/08/17 07:00 15:00 23:00 07:00 15:00 23:00 Intake Total 1200 ml 52 ml 1150 ml Output Total 2125 ml 1975 ml Balance -925 ml 52 ml -825 ml Intake IV Total 1200 ml 52 ml 1150 ml Output Urine Total 100 ml 1975 ml Estimated Blood Loss 25 ml Other 2000 ml Result Diagram: 05/08/1735105/08/17351 Objective Remarks VS-S Abd: soft,dressing dry I&os-OK Labs-OK Assessment and Plan Assessment and Plan Stable. POD#[address] [place], [place] [address]Aden Muller MD May 08, 2017 11:03
--- NOTE | 2017-05-08 19:56 | MP ---
cc: SANTHOSH PERERA M.D. DATE OF SURGERY 05/07/2017 PREOPERATIVE DIAGNOSIS Totally diverting loop sigmoid colostomy. POSTOPERATIVE DIAGNOSIS Totally diverting loop sigmoid colostomy. PROCEDURE Sigmoid resection with closure of loop colostomy. ANESTHESIA Endotracheal. SURGEON Dr. Perera. COMMUNICATIONS EQUIPMENT SUPERVISOR Dr. Berger. ESTIMATED BLOOD LOSS Minimal. OPERATIVE FINDINGS This patient had a fully diverting loop sigmoid colostomy done 4 or 5 months ago for a large upper rectovaginal fistula. The rectovaginal fistula was repaired about 6 to 12 weeks ago and had been inspected and is totally healed up. At this time she is admitted for colostomy closure in a limited manner if possible. At surgery an elliptical incision was made around the colostomy and the distal and proximal sigmoid colon was long enough to allow resection and anastomosis at that site without further laparotomy incision. OPERATIVE TECHNIQUE The patient was placed on the table in the supine position. After adequate general endotracheal anesthesia the legs were placed in the perinel lithotomy position. The abdomen and perineum were prepped and draped in usual manner. Transverse elliptical incision was made around the colostomy which had been previously closed with a simple running Vicryl suture of the mucosa. The dissection was taken down to the subcutaneous tissue to the rectus fascia layer and then the colostomy was dissected free of the rectus muscle and the peritoneal edges and the peritoneal cavity was entered. The distal colon was easily brought up outside the incision and the proximal colon was likewise brought up. Both proximally and distally to the colostomy the sigmoid colon was clamped between Charlee clamps and divided and the ___ and the piece of sigmoid colon was fully removed. An anastomosis was done along the antimesenteric borders of the sigmoid colon with an Ethicon BIBI 55 stapling device and the colotomy was closed with a TX 60 blue staple height stapling device. Of note, there were multiple diverticula in both segments of the sigmoid colon but the anastomosis appeared not to cut through any diverticula and it appeared to be well closed. The opening in the mesentery was approximated with a running 3-0 Vicryl suture and the anastomosis was then reentered into the abdominal cavity and the abdominal cavity was closed in layers using a single stranded #1 PDS for the posterior rectus sheath in a vertical manner and then the anterior rectus sheath was closed with a single layer of #1 PDS in a vertical manner as well. The subcutaneous tissue was irrigated thoroughly with a liter of saline solution. Skin was closed with running 3-0 Vicryl subcuticular suture and dressing was applied. Sponge, needle and instrument counts were reported as correct. Estimated blood loss was minimal. The patient tolerated the procedure well and left the operating room in good condition. MD OSCAR Posada/KELLI /5:47 PM /7:50 PM
[2017-05-08] MEDS ORDERED: ALVIMOPAN 12 MG CAPSULE PO SCH ×2 (21:00)
[2017-05-08] MEDS: LATANOPROST 0.005% OPHT SOLN 2.5 ML BTL EACH EYE SCH ×2 (21:35)
[2017-05-09] VITALS: BP 139/66; PULSE 52; RESP 18; TEMP 96.5; O2SAT 96
[2017-05-09] MEDS: METOCLOPRAMIDE HCL 10 MG/2 ML VIAL IVS SCH ×2 (05:09)
[2017-05-09] MEDS: D5-LR + KCL 20 MEQ INJ 1,000 ML IV SCH ×4 (05:09→21:49)
[2017-05-09] MEDS: PCA - TOTAL MG MORPHINE DELIVERED PER SHIFT SCH ×2 (05:10)
[2017-05-09 08:00] VITALS: BP 143/67; PULSE 56; RESP 20; TEMP 97.7; O2SAT 95
[2017-05-09] MEDS: PANTOPRAZOLE SODIUM 40 MG VIAL IVP SCH ×2 (09:00)
[2017-05-09] MEDS: DORZOLAMIDE 2% OPTH SOLN 200 DROP/10 ML BTLO EACH EYE SCH ×6 (09:01→17:27)
[2017-05-09] MEDS: TIMOLOL MALEATE 0.5% OPHT SOLN 5 ML BTL EACH EYE SCH ×4 (09:01→21:51)
[2017-05-09] MEDS: BRIMONIDINE TARTRATE 0.2% OPHT SOLN 5 ML BTL EACH EYE SCH ×4 (09:02→21:00)
[2017-05-09] MEDS: ALVIMOPAN 12 MG CAPSULE - Post-op dosing PO SCH ×4 (09:03→21:50)
[2017-05-09] MEDS: FUROSEMIDE 20 MG/2 ML VIAL IV PUSH SCH ×4 (09:03→21:50)
[2017-05-09] MEDS: FAMOTIDINE 20 MG TAB PO SCH ×4 (09:03→21:50)
[2017-05-09] MEDS: METOPROLOL TARTRATE 100 MG TAB PO SCH ×4 (09:03→21:50)
[2017-05-09] MEDS: SODIUM CHLORIDE 0.9% FLUSH 10 ML FLUSH IV FLUSH SCH ×4 (09:04→21:00)
[2017-05-09 10:05] LABS: AUTOMATED NEUTROPHIL # 10.3 TH/MM3 (1.8-7.7); BASOPHIL % 0.3 % (0.0-2.0); EOSINOPHIL # 0.1 TH/MM3 (0-0.4); EOSINOPHIL % 1.1 % (0.0-4.0); HEMOGLOBIN 14.4 GM/DL (11.6-15.3); LYMPH % 10.6 % (9.0-44.0); LYMPHOCYTE # 1.3 TH/MM3 (1.0-4.8); MEAN CELL VOLUME 90.2 FL (80.0-100.0); MEAN CORPUSCULAR HEMOGLOBIN 30.2 PG (27.0-34.0); MEAN CORPUSCULAR HGB CONC 33.5 % (32.0-36.0); MEAN PLATELET VOLUME 10.1 FL (7.0-11.0); MONOCYTE # 0.9 TH/MM3 (0-0.9); PLATELET COUNT 201 TH/MM3 (150-450); RED BLOOD COUNT 4.77 MIL/MM3 (4.00-5.30); RED CELL DISTRIBUTION WIDTH 14.1 % (11.6-17.2); WHITE BLOOD COUNT 12.7 TH/MM3 (4.0-11.0)
[2017-05-09 10:32] LABS: BICARBONATE 28.7 MEQ/L (21.0-32.0); CALCIUM 9.4 MG/DL (8.5-10.1); CREATININE 1.03 MG/DL (0.50-1.00)
--- NOTE | 2017-05-09 11:23 | HHI.PR ---
Subjective Remarks C/R Surg POD #2 afebrile, VSS UO good leonel small PO +flatus Objective - Vital Signs Date Time Temp Pulse Resp B/P (MAP) Pulse Ox O2 Delivery O2 Flow Rate FiO2 05/09/17 08:00 97.7 56 20 143/67 (92) 95 05/07/17 17:00 Room Air 05/07/17 16:30 2 Result Diagram: 05/09/1715 05/09/17 0915 Objective Remarks PE alert Abd - soft, wound dry, min tympany A/P Assessment and Plan Imp: adv diet decr IVF dc Jaden Ibarra MD May 09, 2017 11:23
[2017-05-09 12:00] VITALS: BP 132/60; PULSE 65; RESP 19; TEMP 97.5; O2SAT 95
[2017-05-09] MEDS ORDERED: LORazepam 2 MG/ML VIAL IV ONE ×4 (13:45→18:45)
[2017-05-09 16:00] VITALS: BP 123/86; PULSE 86; RESP 19; TEMP 97.5; O2SAT 96
[2017-05-09] MEDS ORDERED: LORazepam 2 MG/ML VIAL IV PRN ×2 (18:45)
[2017-05-09 20:00] VITALS: BP 156/69; PULSE 67; RESP 18; TEMP 96.8; O2SAT 97
[2017-05-09] MEDS: LATANOPROST 0.005% OPHT SOLN 2.5 ML BTL EACH EYE SCH ×2 (21:51)
[2017-05-09] MEDS ORDERED: LORazepam 1 MG TAB PO SCH ×2 (22:00)
[2017-05-10] VITALS: BP 131/64; PULSE 61; RESP 17; TEMP 96.2; O2SAT 97
[2017-05-10] MEDS: D5-LR + KCL 20 MEQ INJ 1,000 ML IV SCH ×4 (04:25→17:01)
[2017-05-10] MEDS: ALVIMOPAN 12 MG CAPSULE - Post-op dosing PO SCH ×4 (07:45→22:14)
[2017-05-10] MEDS: PANTOPRAZOLE SODIUM 40 MG VIAL IVP SCH ×2 (07:46)
[2017-05-10] MEDS: FAMOTIDINE 20 MG TAB PO SCH ×4 (07:46→22:14)
[2017-05-10] MEDS: METOPROLOL TARTRATE 100 MG TAB PO SCH ×4 (07:46→21:00)
[2017-05-10] MEDS: SODIUM CHLORIDE 0.9% FLUSH 10 ML FLUSH IV FLUSH SCH ×4 (07:47→21:00)
[2017-05-10] MEDS: FUROSEMIDE 20 MG/2 ML VIAL IV PUSH SCH ×2 (07:47)
[2017-05-10] MEDS: TIMOLOL MALEATE 0.5% OPHT SOLN 5 ML BTL EACH EYE SCH ×4 (07:48→21:00)
[2017-05-10] MEDS: BRIMONIDINE TARTRATE 0.2% OPHT SOLN 5 ML BTL EACH EYE SCH ×4 (07:48→22:15)
[2017-05-10] MEDS: DORZOLAMIDE 2% OPTH SOLN 200 DROP/10 ML BTLO EACH EYE SCH ×6 (07:48→18:00)
[2017-05-10 07:50] VITALS: BP 185/85; PULSE 68; RESP 18; TEMP 97; O2SAT 97
[2017-05-10] MEDS ORDERED: LORazepam 2 MG/ML VIAL IV PRN ×2 (10:45)
[2017-05-10 12:00] VITALS: BP 129/62; PULSE 51; RESP 18; TEMP 97.3; O2SAT 97
[2017-05-10 16:00] VITALS: BP 180/76; PULSE 62; RESP 20; TEMP 98.1; O2SAT 97
[2017-05-10] MEDS: ENALAPRILAT 1.25 MG/ML VIAL IV PUSH PRN ×4 (17:59→18:00)
--- NOTE | 2017-05-10 21:31 | HHI.PR ---
Subjective Remarks C/R Surg POD #3 afebrile, VSS UO good leonel small PO +flatus/BM still agitated Objective - Vital Signs Date Time Temp Pulse Resp B/P (MAP) Pulse Ox O2 Delivery O2 Flow Rate FiO2 05/10/17 16:00 98.1 62 20 180/76 (110) 97 05/07/17 17:00 Room Air 05/07/17 16:30 2 Result Diagram: 05/09/1791405/09/17 0915 Objective Remarks PE alert Abd - soft, wound dry, min tympany A/P Assessment and Plan Imp: adv diet decr IVF low dose sedation dc plans Jaden Parker MD May 10, 2017 21:31
[2017-05-10 22:11] VITALS: BP 100/58; PULSE 67; RESP 16; TEMP 97.3; O2SAT 97
[2017-05-10] MEDS: LATANOPROST 0.005% OPHT SOLN 2.5 ML BTL EACH EYE SCH ×2 (22:15)
[2017-05-11 08:00] VITALS: BP 136/65; PULSE 66; RESP 17; TEMP 96; O2SAT 97
[2017-05-11] MEDS: SODIUM CHLORIDE 0.9% FLUSH 10 ML FLUSH IV FLUSH SCH ×2 (09:00)
[2017-05-11 09:16] LABS: AUTOMATED NEUTROPHIL # 6.4 TH/MM3 (1.8-7.7); BASOPHIL % 0.6 % (0.0-2.0); EOSINOPHIL # 0.4 TH/MM3 (0-0.4); EOSINOPHIL % 4.2 % (0.0-4.0); HEMATOCRIT 44.9 % (35.0-46.0); HEMOGLOBIN 15.1 GM/DL (11.6-15.3); LYMPH % 14.7 % (9.0-44.0); LYMPHOCYTE # 1.3 TH/MM3 (1.0-4.8); MEAN CELL VOLUME 89.3 FL (80.0-100.0); MEAN CORPUSCULAR HGB CONC 33.6 % (32.0-36.0); MONO % 8.8 % (0.0-8.0); MONOCYTE # 0.8 TH/MM3 (0-0.9); NEUT % 71.7 % (16.0-70.0); PLATELET COUNT 196 TH/MM3 (150-450); RED BLOOD COUNT 5.03 MIL/MM3 (4.00-5.30); RED CELL DISTRIBUTION WIDTH 13.9 % (11.6-17.2); WHITE BLOOD COUNT 8.9 TH/MM3 (4.0-11.0)
[2017-05-11 09:37] LABS: BICARBONATE 25.8 MEQ/L (21.0-32.0); CALCIUM 9.6 MG/DL (8.5-10.1); CREATININE 0.81 MG/DL (0.50-1.00)
[2017-05-11] MEDS: METOPROLOL TARTRATE 100 MG TAB PO SCH ×2 (09:46)
[2017-05-11] MEDS: FAMOTIDINE 20 MG TAB PO SCH ×2 (09:46)
[2017-05-11] MEDS: ALVIMOPAN 12 MG CAPSULE - Post-op dosing PO SCH ×2 (09:46)
[2017-05-11] MEDS: PANTOPRAZOLE SODIUM 40 MG VIAL IVP SCH ×2 (09:47)
[2017-05-11] MEDS: BRIMONIDINE TARTRATE 0.2% OPHT SOLN 5 ML BTL EACH EYE SCH ×2 (09:48)
[2017-05-11] MEDS: TIMOLOL MALEATE 0.5% OPHT SOLN 5 ML BTL EACH EYE SCH ×2 (09:48)
[2017-05-11] MEDS: D5-LR + KCL 20 MEQ INJ 1,000 ML IV SCH ×2 (09:49)
[2017-05-11] MEDS: DORZOLAMIDE 2% OPTH SOLN 200 DROP/10 ML BTLO EACH EYE SCH ×6 (09:49→17:19)
--- NOTE | 2017-05-11 11:10 | HHI.DCPOC ---
Discharge Care Plan Diagnosis: (1) Colostomy Closure Your Health Problems Are: Anxiety Difficulty with ADL Incision/Drains Appetite Changes Irregular Bowel Function Urinary Difficulties Exercise Tolerance Additional Problems Pt is more confused post op Goals to Promote Your Health * To prevent worsening of your condition and complications * To maintain your health at the optimal level Directions to Meet Your Goals Take your medications as prescribed Follow your dietary instruction Follow activity as directed Keep your appointments as scheduled Take your immunizations and boosters as scheduled If your symptoms worsen call your PCP, if no PCP go to Urgent Care Center or Emergency Room Smoking is Dangerous to Your Health. Avoid second hand smoke Call the 24-hour hour crisis hotline for domestic abuse at Aden Perera MD May 11, 2017 11:10
--- NOTE | 2017-05-11 11:10 | HHI.DCPOC ---
Discharge Care Plan Diagnosis: (1) Colostomy Closure Your Health Problems Are: Anxiety Difficulty with ADL Incision/Drains Appetite Changes Irregular Bowel Function Urinary Difficulties Exercise Tolerance Additional Problems Pt is more confused post op Goals to Promote Your Health * To prevent worsening of your condition and complications * To maintain your health at the optimal level Directions to Meet Your Goals Take your medications as prescribed Follow your dietary instruction Follow activity as directed Keep your appointments as scheduled Take your immunizations and boosters as scheduled If your symptoms worsen call your PCP, if no PCP go to Urgent Care Center or Emergency Room Smoking is Dangerous to Your Health. Avoid second hand smoke Call the 24-hour hour crisis hotline for domestic abuse at Aden Perera MD May 11, 2017 11:10
--- NOTE | 2017-05-11 11:10 | HHI.DCPOC ---
Discharge Care Plan Diagnosis: (1) Colostomy Closure Your Health Problems Are: Anxiety Difficulty with ADL Incision/Drains Appetite Changes Irregular Bowel Function Urinary Difficulties Exercise Tolerance Additional Problems Pt is more confused post op Goals to Promote Your Health * To prevent worsening of your condition and complications * To maintain your health at the optimal level Directions to Meet Your Goals Take your medications as prescribed Follow your dietary instruction Follow activity as directed Keep your appointments as scheduled Take your immunizations and boosters as scheduled If your symptoms worsen call your PCP, if no PCP go to Urgent Care Center or Emergency Room Smoking is Dangerous to Your Health. Avoid second hand smoke Call the 24-hour hour crisis hotline for domestic abuse at Aden Perera MD May 11, 2017 11:10
--- NOTE | 2017-05-11 11:13 | HHI.PR ---
Subjective Remarks No N or V. Having BMs. Less combative and confused than yesterday. Objective Vital Signs Date Time Temp Pulse Resp B/P (MAP) Pulse Ox O2 Delivery O2 Flow Rate FiO2 05/11/17 08:00 96.0 66 17 136/65 (88) 97 05/10/17 22:11 97.3 67 16 100/58 (72) 97 05/10/17 16:00 98.1 62 20 180/76 (110) 97 05/10/17 12:00 97.3 51 18 129/62 (84) 97 I/O 05/10/17 05/10/17 05/10/17 05/11/17 05/11/17 05/11/17 07:00 15:00 23:00 07:00 15:00 23:00 Intake Total 890 ml 1360 ml Balance 890 ml 1360 ml Intake Oral 240 ml 360 ml IV Total 650 ml 1000 ml # Voids 3 5 # Bowel Movements 1 Result Diagram: 05/11/1730 05/11/17729 Objective Remarks VS-S Abd: soft, non distended, wound clean I&os-OK Labs-OK Assessment and Plan Assessment and Plan Stable. POD#4 D/C to SNF F/U with me in 2 weeks Resume all meds Aden Perera MD May 11, 2017 11:13
[2017-05-11 12:00] VITALS: BP_SYST 121; BP_SYST 137; BP_DIAS 60; BP_DIAS 68; PULSE 53; PULSE 61; RESP 16; TEMP 96.5; TEMP 96.8; O2SAT 96; O2SAT 98
== END 2017-05-11 19:14 | DRG 330 ==
LOC: HSDI 11:01 → HCPC 17:42 → N07B 05-08 16:10
PROVIDERS: ADMIT Colon & Rectal Surgery; ATTEND Colon & Rectal Surgery
PROC: 0DBN0ZZ Excision of Sigmoid Colon, Open Approach (ICD-10-PCS; principal; 2017-05-07 13:55)
DX: Z43.3 Encounter for attention to colostomy (principal); F03.91 Unspecified dementia, unspecified severity, with behavioral disturbance; I10 Essential (primary) hypertension; K21.9 Gastro-esophageal reflux disease without esophagitis; F32.9 Major depressive disorder, single episode, unspecified; F41.9 Anxiety disorder, unspecified
CPT/HCPCS: 80048; 85025; 86850; 86900; 86901; 88304; 88307; 88311; 94150; C9113; J0690; J1940; J2060; J2270; J2765; J3480; J7120